=== PATIENT | male | born 1975 | race American Indian/Alaskan Native ===

== ENCOUNTER 2021-02-28 10:23 | Outpatient (CLI) | payer OTHER ==
--- NOTE | 2021-02-28 13:15 | Magnetic Resonance Report ---
MRI RIGHT SHOULDER WITHOUT CONTRAST INDICATION / CLINICAL INFORMATION: ACUTE RIGHT SHOULDER INJURY, FELL ON SHOULDER PLAYING BASKETBALL. TECHNIQUE: Multiplanar, multisequence MR images were obtained. No contrast used. COMPARISON: None available. FINDINGS: SUPRASPINATUS: Tendinosis without tear. INFRASPINATUS: Tendinosis without tear. SUBSCAPULARIS: Distal tendinosis without tear. BICEPS TENDON, LONG HEAD: No significant abnormality. GLENOID LABRUM: Complex soft tissue Bankart of anterior-inferior labrum. No definite osseous Bankart. ARTICULAR CARTILAGE: No significant abnormality. JOINT SPACE / CAPSULE: No significant abnormality. ACROMION / A.C. JOINT: Severe DJD of AC joint with distal clavicular osteophytes resulting in moderat e encroachment. SUBACROMIAL/SUBDELTOID SPACE: No significant abnormality. BONES: Moderate sized Hill-Sachs fractureinvolving approximately 33% of humeral head with mild edema . No aggressive osseous lesion. SOFT TISSUES: No significant abnormality. ADDITIONAL FINDINGS: None. IMPRESSION: 1. Sequela of recent shoulder dislocation including moderate-sized Hill-Sachs deformity and complex s oft tissue Bankart of anterior inferior labrum. 2. Rotator cuff tendinosis without tear. 3. 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 Report dictated by: Maico Restrepo MD Report dictated on: 02/28/2021 11:50 AM I have reviewed the images, agree with this report, and edited this report as needed. Signer Name: Juan Antunez MD Signed: 02/28/2021 1:11 PM Workstation Name: [email or web address]
== END 2021-02-28 10:24 | disposition home or self-care (01) ==
LOC: MRI 10:23
PROVIDERS: ATTEND Internal Medicine
DX: S42.14 Fracture of glenoid cavity of scapula (principal); M19.011 Primary osteoarthritis, right shoulder; X58.XXXS Exposure to other specified factors, sequela